=== PATIENT | male | born 1965 | race Caucasian/White ===

== ENCOUNTER → 2024-08-18 10:23 | Outpatient (REF) | payer BC, SELFPAY | LOC: RAD 10:23 | PROVIDERS: ATTENDING PHYSICIAN Internal Medicine Cardiovascular Disease; FAMILY PHYSICIAN Internal Medicine | DX: T49.3X1A Poisoning by emollients, demulcents and protectants, accidental (unintentional), initial encounter (principal) | CPT/HCPCS: 75574; Q9967 ==